=== PATIENT | male | born 1975 | race Asian ===

== ENCOUNTER 2017-07-03 21:57 | Emergency (ER) | payer SELFPAY ==
[~2017-07-03] VITALS: Ht 172.7 cm; Wt 68.9 kg
[2017-07-03] MEDS ORDERED: Ketorolac 60mg Inj IM ONE (22:30)
--- NOTE | 2017-07-03 22:33 | Emergency Room Report ---
History of Present Illness General Chief Complaint: Lower Back Pain or Injury Source: Patient Present Illness HPI Patient presents with lower back pain. He said it started when he was walking earlier today when he twisted. He felt pain it was starting in his back and then went around to the sides. It is worsened when he was trying to do things at work. He got a massage and this helped. He's taken Aleve twice today and is helped out somewhat. Some sense of burning when he urinates and some urgency. He denies any fevers, chills, weakness, numbness, perineal numbness. No blood thinners, oncologic problems. He's had C5 problems but never problems with his lower back. 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 Allergies: Coded Allergies: No Known Allergies (Unverified , 07/03/17) Patient History Past Medical History: see triage record Social History: Reports: smoking, Denies: alcohol use, drug use Social History Narrative hostess cashier Reviewed Nursing Documentation: PMH: Agreed, PSxH: Agreed Nursing Documentation-PMH Past Medical History: No History, Except For Hx Gastrointestinal Problems: Yes - GERD Review of Systems All Other Systems: negative except mentioned in HPI Physical Exam Vital Signs Date Time Temp Pulse Resp B/P (MAP) Pulse Ox O2 Delivery O2 Flow Rate FiO2 07/03/17 22:06 98.2 87 16 138/94 97 Room Air Sp02 EP Interpretation: reviewed, normal General Appearance: well appearing, no apparent distress Head: normocephalic, atraumatic Eyes: bilateral eye normal inspection, bilateral eye PERRL ENT: hearing grossly normal, normal voice, moist mucus membranes Neck: full range of motion, supple, no bony tend Respiratory: lungs clear, normal breath sounds, no respiratory distress, speaking full sentences Cardiovascular #1: normal peripheral pulses, regular rate, rhythm Gastrointestinal: normal bowel sounds, soft, no mass, other - subjective tenderness flanks, R>L, scaphoid Musculoskeletal: other - bilateral paraspinous muscle spasms, no central tenderness or step off. Able to sit and stand without difficulty Neurologic: alert, motor strength/tone normal, DTRs symmetric, sensory intact, cerebellar normal, normal gait, speech normal Psychiatric: mood/affect normal Reflexes: 2+ knee (R), 2+ knee (L), 1+ ankle (R), 1+ ankle (L) Skin: no rash Medical Decision Making Diagnostic Impression: Primary Impression: Low back strain Qualified Codes: S39.012A - Strain of muscle, fascia and tendon of lower back , initial encounter ER Course Patient presents with lumbar pain and muscle tightness bilaterally. It's worse on the left-hand side. In addition he has some dysuria. Differential includes muscle strain, lumbar strain, UTI, amongst others. The patient does not have CVA tenderness and therefore pyelonephritis is less likely. He's concerned about his abdomen. Abdominal films will be obtained and a urinalysis. The patient was given a shot of Toradol and also Tylenol by mouth. UA clear. Abd films with increased gas, normal estrada structures and no unusual calcifications. Improved but still c/o pain. Discussed dx and answered all questions. Discussed need for physical therapy. Patient stable for outpatient observation and treatment. Laboratory Tests Test 07/03/17 22:40 Urine Color Pale yellow Urine Appearance Clear Urine pH 6 (4.5-8.0) Urine Specific [place] 1.015 (1.005-1.035) Urine Protein Negative (NEGATIVE) Urine Glucose (UA) Negative (NEGATIVE) Urine Ketones Negative (NEGATIVE) Urine Occult Blood Negative (NEGATIVE) Urine Nitrite Negative (NEGATIVE) Urine Bilirubin Negative (NEGATIVE) Urine Urobilinogen Normal MG/DL (0.0-1.0) Urine Leukocyte Esterase 1+ (NEGATIVE) H Urine RBC 0 /HPF (0 - 0) Urine WBC 0-2 /HPF (0 - 0) Urine Squamous Epithelial Cells Occasional /LPF Urine Bacteria None /HPF (NONE) Other X-Ray Diagnostic Results Other X-Ray Diagnostic Results : X-Ray ordered: abd # of Views/Limited Vs Complete: 1 View Indication: Other EP Interpretation: Yes Interpretation: nonspecific bowel gas - increased gas, no sbo, other - nl spine Impression: No acute disease Electronically Signed by: Joseph Costello MD Last Vital Signs Date Time Temp Pulse Resp B/P (MAP) Pulse Ox O2 Delivery O2 Flow Rate FiO2 07/04/17 00:38 98.2 16 138/94 97 Room Air 07/03/17 22:06 87 Status: improved Disposition: HOME, SELF-CARE Condition: Improved Scripts Methocarbamol* (ROBAXIN*) 500 Mg Tablet 500 MG PO TID, #10 TAB 0 Refills Prov: Joseph Costello M.D. 07/03/17 Ibuprofen* (MOTRIN*) 600 Mg Tablet 600 MG ORAL Q6H Y for For Pain, #20 TAB Prov: Joseph Costello M.D. 07/03/17 Tramadol Hcl* (ULTRAM*) 50 Mg Tablet 50 MG ORAL Q6H Y for For Pain, #6 TAB 0 Refills Prov: Joseph Costello M.D. 07/03/17 Joseph Costello M.D. Jul 03, 2017 22:33
[2017-07-03 23:08] LABS: APPEARANCE,URINE CLEAR; BILIRUBIN, URINE NEGATIVE (NEGATIVE); COLOR,URINE PALE YELLOW; GLUCOSE, URINE (UA) NEGATIVE (NEGATIVE); KETONES,URINE NEGATIVE (NEGATIVE); LEUKOCYTE ESTERASE ,URINE 1+ (NEGATIVE); NITRITE,URINE NEGATIVE (NEGATIVE); PH,URINE 6 (4.5-8.0); PROTEIN,URINE NEGATIVE (NEGATIVE); UROBILINOGEN,URINE NORMAL MG/DL (0.0-1.0)
[2017-07-03] MEDS ORDERED: IBUPROFEN600 MG ORAL (23:53)
[2017-07-03] MEDS ORDERED: ROBAXIN500 MG PO (23:53)
[2017-07-03] MEDS ORDERED: TRAMADOL HCL50 MG ORAL (23:53)
[2017-07-04 00:38] VITALS: BP 138/94
--- NOTE | 2017-07-04 09:20 | Diagnostic Imaging Report ---
Indication: Lower back and flank pain Technique: XRAY Abdomen 1v Comparison: None. Findings: The bones are intact. No fracture. No evidence of bone destruction. The bowel gas pattern is nonobstructive. There are no abnormal calcifications. No free fluid or gross free air. Impression: Normal abdomen.
== END 2017-07-04 00:39 | disposition home or self-care (01) ==
LOC: EDBD 23:55 → EMR 23:55
DX: S39.012A Strain of muscle, fascia and tendon of lower back, initial encounter (principal); X50.1XXA Overexertion from prolonged static or awkward postures, initial encounter; Y92.9 Unspecified place or not applicable; K21.9 Gastro-esophageal reflux disease without esophagitis
CPT/HCPCS: 74018; 81003; 99284